=== PATIENT | male | born 1965 | race Caucasian/White ===

== ENCOUNTER 2024-08-26 11:03 | Emergency (ER) | payer OTHER, SELFPAY ==
[2024-08-26 11:11] VITALS: BMI 38.5
[2024-08-26 11:12] VITALS: BP 162/93; PULSE 85; RESP 18; TEMP 36.3; O2SAT 98
--- NOTE | 2024-08-26 11:29 | XR_ITS ---
Examination: CT brain head without contrast. 2-D sagittal coronal reconstructions Date and time of exam:August 26, 2024 1146 hrs. Indications: Weakness headaches several days CTDI: vol (mGy):52.8 DLP: (mGycm):1044 Technique: Multiple CT axial sections of the brain have been obtained, 5 mm slice thickness. Contrast has not been administered. 2-D sagittal, coronal reconstructions have been obtained Low dose protocols were performed. One or more of the following dose reduction techniques were used; automated exposure control, adjustment of the mA and/or KV according to patient size, use of iterative reconstruction technique. Findings: No significant ventricular enlargement. Intra-axial or extra-axial hemorrhage density is not seen. No mass effect or midline shift Basal cisterns are not remarkable. Fourth ventricle is midline. Cranial vault intact. Impression: Negative for acute hemorrhage, mass effect or midline shift Advise clinical correlation and follow-up accordingly
--- NOTE | 2024-08-26 11:30 | XR_ITS ---
Examination: PA lateral chest 2 views Technique: Upright PA lateral chest 2 views Date and time: February 25, 2025 1244 hrs. Indications: Chest pain beginning 2 days ago. Findings: Normal heart size. Lungs are clear. The osseous structures are intact. Impression: No active disease
--- NOTE | 2024-08-26 11:30 | EKG_ITS ---
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
--- NOTE | 2024-08-26 11:30 | PD.EDRME ---
Rapid Medical Screening Exam RME Arrival date/time: 08/26/24 11:03 59-year-old male presents to the emergency department today for complaints of generalized fatigue ongoing for the last week Chief Complaint: Headache Time Seen by Provider: 08/26/24 11:30 Vital signs: Vital Signs Temperature 97.4 F 08/26/24 11:12 Pulse Rate 85 08/26/24 11:12 Respiratory Rate 18 08/26/24 11:12 Blood Pressure 162/93 H 08/26/24 11:12 Pulse Oximetry (%) 98 08/26/24 11:12 Oxygen Delivery Method Room Air 08/26/24 11:12
[2024-08-26 12:15] LABS: Basophils # (Auto) 0.1 Thou/mm3 (0.0-0.2); Basophils % (Auto) 1 % (0-2.5); Eosinophils # (Auto) 0.5 Thou/mm3 (0.0-0.5); Eosinophils % (Auto) 4 % (0-10); Hematocrit 39.3 % (41.0-53.0); Hemoglobin 13.4 g/dL (13.5-16.0); Immature Granulocytes % (Auto) 2 % (0-0); Lymphocytes # (Auto) 3.4 Thou/mm3 (1.0-4.8); Lymphocytes % (Auto) 29 % (10-50); Mean Corpuscular HGB Conc 34.1 g/dl (31.0-37.0); Mean Corpuscular Volume 91 fL (80-100); Monocytes % (Auto) 8 % (0-12); Neutrophils # (Auto) 6.7 Thou/mm3 (1.8-7.7); Neutrophils % (Auto) 57 % (37-80); Nucleated Red Blood Cell % 0 /100 WBC (0); Platelet Count 335 Thou/mm3 (140-440); Red Blood Count 4.32 Miln/mm3 (4.50-5.90); White Blood Count 11.9 Thou/mm3 (3.8-10.6)
[2024-08-26 12:30] LABS: Collection Type, Urine Clean Catch
[2024-08-26 12:43] LABS: Bilirubin,Urine Negative (Negative); Blood,Urine Negative (Negative); Clarity,Urine Clear (Clear/Hazy); Color,Urine Yellow (Lt Yel-Yel); Glucose, Urine Negative (Negative); Hyaline Casts,Urine < 1 /hpf (0-1); Ketones,Urine Negative (Negative); Leukocyte Esterase,Urine Negative (Negative); Nitrite,Urine Negative (Negative); PH,Urine 5.5 (5.0-7.0); Protein,Urine Trace (Neg - Trace); RBC,Urine 1 /hpf (0-3); Specific Gravity,Urine 1.031 (1.001-1.035); Squamous Epithelial Cell,Urine 1 /hpf (0-5); Urobilinogen,Urine Negative mg/dL (0.0-1.0); WBC,Urine 2 /hpf (0-5)
[2024-08-26 12:46] LABS: Alanine Aminotransferase 19 U/L (10-49); Albumin, Serum 4.7 gm/dL (3.5-5.0); Albumin/Globulin Ratio 1.8 (1.2-2.2); Alkaline Phosphatase 60 U/L (46-116); Anion Gap 13 (7-16); BUN/Creatinine Ratio 21 Ratio (12-20); Bilirubin,Total 0.2 mg/dL (0.3-1.2); Blood Urea Nitrogen 38 mg/dL (9-23); Calcium 10.2 mg/dL (8.3-10.6); Calcium (Corrected) 10.2 mg/dL (8.5-10.1); Carbon Dioxide 22.3 mMol/L (20.0-31.0); Chloride 104 mMol/L (98-107); Creatinine (Component) 1.8 mg/dL (0.6-1.3); Estimated Creatinine Clearance 52.2 mL/min (>60); Globulin 2.6 gm/dL (2.3-3.5); Glucose 196 mg/dL (74-106); Osmolality,Calculated 291 (275-295); Potassium 4.5 mMol/L (3.4-5.1); Sodium 139 mMol/L (136-145); Total Protein 7.3 gm/dL (5.7-8.2); Troponin I < 0.020 ng/mL (0.0-0.045); eGFR 43 See Note
[2024-08-26 12:47] LABS: B-Type Natriuretic Peptide < 20 pg/mL (0-100)
[2024-08-26 14:42] VITALS: BP 145/84; PULSE 88; RESP 18; TEMP 36.5; O2SAT 97
--- NOTE | 2024-08-26 15:19 | PD.EDADULT ---
ED General RME/HPI General Chief complaint: Headache Stated complaint: CARDOZA, CLAMMY, LEFT EYE FEELS FUNNY, LEFT EAR PAIN Time Seen by Provider: 08/26/24 11:30 Arrival date/time: 08/26/24 11:03 Limitations: no limitations RME / HPI RME / HPI narrative: 08/26/24 11:03 59-year-old male presents to the emergency department today for complaints of generalized fatigue ongoing for the last week DR. GUERRERO MAIN ED EVALUATION: 59 year old male with past medical history significant for diabetes presents to the Emergency Department accompanied by his with complaint of top left headache onset 1.5 weeks. Headache is intermittent. Associated symptoms include generalized weakness. Denies any neck pain but does state his pain goes a little down his left ear area. No back pain. No fevers or chills. No nausea or vomiting. Related Data Home Medications ?Medication ?Instructions ?Recorded ?Confirmed aspirin 81 mg tablet,delayed 81 mg PO QDAY 01/02/19 01/06/19 release (Aspir-) fexofenadine 180 mg tablet 180 mg PO BID 01/02/19 01/06/19 (Addie Allergy) fluticasone propionate 50 1 spray intranasal QDAY 01/02/19 01/06/19 mcg/actuation nasal spray,suspension (Flonase Allergy Relief) gemfibrozil 600 mg tablet 600 mg PO BID 01/02/19 01/06/19 losartan 50 mg tablet 50 mg PO QDAY 01/02/19 01/06/19 [id number]-gzq-fbifk acid 0.4 1 tab PO QDAY 01/02/19 01/06/19 mg-lycopene 300 mcg-lutein 250 mcg tablet (Centrum Silver) omeprazole 40 mg capsule,delayed 40 mg PO QDAY 01/02/19 01/06/19 release Previous Rx's ?Medication ?Instructions ?Recorded docusate sodium 100 mg capsule 100 mg PO BID #50 caps 01/06/19 (Colace) hydrocodone 7.5 mg-acetaminophen 1 tab PO Q6H PRN pain #25 tabs 01/06/19 325 mg tablet ([place]) ibuprofen 600 mg tablet 600 mg PO Q6H PRN pain (scale 01/06/19 score 4-6) #20 tabs ibuprofen 800 mg tablet 800 mg PO TID PRN pain #30 tabs 02/11/23 methocarbamol 750 mg tablet 750 mg PO Q6H muscle spasm #20 tabs 08/26/24 Allergies Allergy/AdvReac Type Severity Reaction Status Date / Time hydrocodone Allergy Verified 02/11/23 13:16 Review of Systems Review of Systems Systems Reviewed: All systems reviewed, normal except as documented Past Medical History Past Medical History NEUROLOGIC: Positive Transient Ischemic Attacks (TIA) (3 YEARS AGO, HAD WORKUP. WAS NOT CONFIRMED/RULED OUT) and Head Trauma (MULT THROUGHOUT CHILDHOOD/EARLY ADULTHOOD) CARDIAC: Positive Cardiac Disorders, Hypercholesterolemia (On meds) and Hypertension (on meds) GASTROINTESTINAL: Positive Gastrointestinal Disorders, Hemorrhoids (no surgery needed), Gastroesophageal Reflux Disease (takes med) and Obesity MUSCULOSKELETAL: Positive Fractures (ribs, L elbow, broken teeth, cracked his skull (no sx needed)) ENT: Positive Head Trauma (MULT THROUGHOUT CHILDHOOD/EARLY ADULTHOOD) HEMATOLOGIC: Positive Anemia (as a child, took iron x) OTHER HISTORY: Positive Chicken Pox Family History FAMILY HISTORY: Positive Family Respiratory Disorders (MOTHER-ASTHMA,COPD. BROTHER ASTHMA), Family Cardiac Disorders (BROTHER-CARDIAC BYPASS SX, MOTHER-HTN), Family Gastrointestinal Problems (FATHER-POSSIBLE ULCER?), Family Cancer (MOTHER-OVARIAN CA 2019) and Family Surgery (BROTHER, MOTHER, SISTER) Social History SMOKING STATUS: Never smoker SUBSTANCE USE: does not use ALCOHOL: Never ED Exam General Limitations: Present no limitations General appearance: Present alert and in no apparent distress Head Head exam: Present atraumatic, normocephalic and normal inspection Eye Eye exam: Present normal appearance, PERRL and EOMI ENT ENT exam: Present normal exam, normal oropharynx and mucous membranes moist Neck Neck exam: Present tenderness (TMJ tenderness, trigger point on the left trapezius muscle tenderness) Chest Chest inspection: Present normal inspection and symmetric chest wall rise Respiratory Respiratory exam: Present normal lung sounds bilaterally Cardiovascular Cardiovascular exam: Present regular rate, normal rhythm and normal heart sounds Abdominal Exam Abdominal exam: Present soft and normal bowel sounds Extremities Exam Extremities exam: Present normal inspection and full ROM Back Exam Back exam: Present normal inspection and full ROM Neurological Exam Neurological exam: Present alert, oriented X3 and CN II-XII intact Psychiatric Psychiatric exam: Present normal affect and normal mood Skin Skin exam: Present warm, dry, intact and normal color Course Quality Measures none Orders Category Date Time Status EKG (ED ONLY) *Do not use* NOW Care 08/26/24 11:[address] head/brain wo con Stat Exams 08/26/24 11:29 Completed EKG (ED Only) Stat Exams 08/26/24 11:30 Draft XR chest 2V Stat Exams 08/26/24 11:30 Completed B-Type Natriuretic Peptide Stat Lab 08/26/24 11:54 Completed CBC Stat Lab 08/26/24 11:54 Completed Comprehensive Metabolic Panel Stat Lab 08/26/24 11:54 Completed Troponin I Stat Lab 08/26/24 11:54 Completed Urinalysis Stat Lab 08/26/24 12:17 Completed Ketorolac Inj [Toradol Inj] Med 08/26/24 15:27 Discontinued 15 mg IM X1 ONE Vital Signs Vital signs: Vital Signs Temperature 97.4 F 08/26/24 11:12 Pulse Rate 85 08/26/24 11:12 Respiratory Rate 18 08/26/24 11:12 Blood Pressure 162/93 H 08/26/24 11:12 Pulse Oximetry (%) 98 08/26/24 11:12 Oxygen Delivery Method Room Air 08/26/24 11:12 Discharge Plan Plan Patient Disposition: HOME (Self Care) Patient condition on transfer: Stable Prescriptions/Referrals Prescriptions/Med Rec: New methocarbamol 750 mg tablet 750 mg PO Q6H MDD 4 Qty: 20 0RF No Action losartan 50 mg Tablet 50 mg PO QDAY fexofenadine [Addie Allergy] 180 mg Tablet 180 mg PO BID omeprazole 40 mg Capsule,Delayed Release(Dr/Ec) 40 mg PO QDAY aspirin [Aspir-81] 81 mg Tablet,Delayed Release (Dr/Ec) 81 mg PO QDAY gemfibrozil 600 mg Tablet 600 mg PO BID fluticasone propionate [Flonase Allergy Relief] 50 mcg/actuation [place],Suspension 1 spray intranasal QDAY Centrum Silver 0.4-300-250 mg-mcg-mcg Tablet 1 tab PO QDAY docusate sodium [Colace] 100 mg capsule 100 mg PO BID Qty: 50 0RF hydrocodone-acetaminophen [[place]] 7.5-325 mg tablet 1 tab PO Q6H MDD 5 PRN (Reason: pain) Qty: 25 0RF ibuprofen 600 mg tablet 600 mg PO Q6H PRN (Reason: pain (scale score 4-6)) Qty: 20 0RF ibuprofen 800 mg tablet 800 mg PO TID PRN (Reason: pain) Qty: 30 0RF Referrals: Cesar Monge MD [Primary Care Provider] - In 1 week Problem List Clinical Impression: Myofascial pain, TMJ tenderness, left, Hyperglycemia, Dehydration, Headache Patient/Caregiver Discharge Instructions Diet Instructions: drink more fluids Additional Instructions: Drink more fluids. Take Tylenol 500 mg 2 tabs every 6 hours as needed for pain PLUS Advil 200 mg gel 2 tablets. Please talk to your doctor about physical therapy and an ENT referral for TMJ. Please follow-up with your primary care physician within 2 days. Return to the Emergency Department as needed. Print Language: Amharic Stand Alone Forms: [employer] Award Info., Work/School Release, Patient Portal Info Letter MDM Narrative [facility] hospital course: I, Luli Pascual, am scribing for and in the presence of Dr. Guerrero. Head CT is negative. Patient had myolfacial pain and left TMJ tenderness. Patient is hyperglycemic, his blood glucose is 196. Patient is also dehydrated and was advised to drink more fluids. Patient will be discharged with a muscle relaxer and advised to take Tylenol 500 mg 2 tabs every 6 hours as needed for pain PLUS Advil 200 mg gel 2 tablets. Patient was also advised to follow up with her doctor about physical therapy and an ENT referral for TMJ. Clinical Information Provided by patient and spouse Medical Records Reviewed [facility] Meds/Rx Considered, not Ordered None Labs/Rad/Tests considered, not Ordered None Chronic Illness/Social Conditions Add or document further as needed: Diabetes EKG Interpretation EKG #1: Date/time of EK08/26/24 1132 hours EKG interpretation: sinus rhythm, rate 84, no acute changes, VA interval 152 ms, QRS duration 86 ms, QT/QTc 343/407, P-R-T axis 59, 15, 61 Lab Interpretation Labs: see narrative above Imaging Imaging interpretation: see narrative above Radiology reports / interpretation(s): Procedure(s): XR chest 2V Accession Number(s): [id number] cc: Jemma (DANETTE),Christopher SAMANIEGO; Herman Gallardo MD; Cesar Monge MD~ Examination: PA lateral chest 2 views Technique: Upright PA lateral chest 2 views Date and time: February 25, 2025 1244 hrs. Indications: Chest pain beginning 2 days ago. Findings: Normal heart size. Lungs are clear. The osseous structures are intact. Impression: No active disease Dictated By: Herman Gallardo MD Procedure(s): CT head/brain wo con Accession Number(s): [id number] cc: Jemma (DANETTE),Christopher SAMANIEGO; Herman Gallardo MD; Cesar Monge MD~ Examination: CT brain head without contrast. 2-D sagittal coronal reconstructions Date and time of exam:August 26, 2024 1146 hrs. Indications: Weakness headaches several days CTDI: vol (mGy):52.8 DLP: (mGycm):1044 Technique: Multiple CT axial sections of the brain have been obtained, 5 mm slice thickness. Contrast has not been administered. 2-D sagittal, coronal reconstructions have been obtained Low dose protocols were performed. One or more of the following dose reduction techniques were used; automated exposure control, adjustment of the mA and/or KV according to patient size, use of iterative reconstruction technique. Findings: No significant ventricular enlargement. Intra-axial or extra-axial hemorrhage density is not seen. No mass effect or midline shift Basal cisterns are not remarkable. Fourth ventricle is midline. Cranial vault intact. Impression: Negative for acute hemorrhage, mass effect or midline shift Advise clinical correlation and follow-up accordingly Dictated By: Herman Gallardo MD Medication Administration(s) none Medication Administration History Discontinued Medications Ketorolac Tromethamine (Ketorolac Inj 60 Mg/2 Ml Vial) 15 mg IM X1 ONE Stop: 08/26/24 15:28 Diagnosis Differential diagnosis: Headache, migraine, myolfacial pain, left TMJ tenderness Most likely dx, and/or detailed dx discussion: Myolfacial pain Left TMJ tenderness Hyperglycemia Headache Dispositon Disposition: Discharge Home
[2024-08-26] MEDS: KETOROLAC INJ 60 MG/2 ML VIAL 15 MG IM (15:53)
== END 2024-08-26 15:58 | disposition home or self-care (01) ==
PROVIDERS: Nurse Practitioner Primary Care; Emergency Provider Family Medicine; PCP Family Medicine
DX: E86.0 Dehydration (principal); E11.65 Type 2 diabetes mellitus with hyperglycemia; M26.602 Left temporomandibular joint disorder, unspecified; R07.9 Chest pain, unspecified; E78.00 Pure hypercholesterolemia, unspecified; I10 Essential (primary) hypertension; H92.02 Otalgia, left ear
CPT/HCPCS: 36415; 70450; 71046; 80053; 81001; 83880; 84484; 85025; 93005; 96372; 99284; J1885

== ENCOUNTER → 2024-08-28 | Outpatient (CLI) | payer OTHER, SELFPAY ==
--- NOTE | 2024-08-28 | XR_ITS ---
Examination: Retroperitoneal ultrasound, complete Technique: Multiple high resolution grayscale images of the retroperitoneum obtained, including kidneys and bladder. Exam date and time:August 28, 2024 1141 hours INDICATIONS: Diagnosis chronic kidney disease stage II FINDINGS: Right kidney 12.8 cm cortex 2.6 cm Left kidney 11.2 cm renal cortex 2.8 cm Mild to moderate bilateral renal parenchymal scar formation No hydronephrosis No bladder mass or bladder calculi Bladder prevoid volume 107 cc postvoid volume 9 cc, negative for prostatomegaly IMPRESSION: Mild to moderate bilateral renal parenchymal scar formation
[2024-08-28 12:40] LABS: Alanine Aminotransferase 21 U/L (10-49); Albumin, Serum 4.8 gm/dL (3.5-5.0); Albumin/Globulin Ratio 1.9 (1.2-2.2); Alkaline Phosphatase 58 U/L (46-116); Anion Gap 13 (7-16); BUN/Creatinine Ratio 21 Ratio (12-20); Bilirubin,Total 0.2 mg/dL (0.3-1.2); Blood Urea Nitrogen 29 mg/dL (9-23); Calcium 10.1 mg/dL (8.3-10.6); Calcium (Corrected) 10.1 mg/dL (8.5-10.1); Chloride 104 mMol/L (98-107); Creatinine (Component) 1.4 mg/dL (0.6-1.3); Globulin 2.5 gm/dL (2.3-3.5); Glucose 142 mg/dL (74-106); Osmolality,Calculated 287 (275-295); Potassium 4.7 mMol/L (3.4-5.1); Sodium 140 mMol/L (136-145); T4 (Thyroxine) 5.6 mcg/dL (4.5-10.9); Thyroid Stimulating Hormone 5.06 uIU/mL (0.55-4.78); Total Protein 7.3 gm/dL (5.7-8.2); eGFR 59 See Note
[2024-08-28 13:36] LABS: Glucose Estimated Average 157 mg/dL (80-131); Hemoglobin A1C 7.1 % Hgb (4.8-6.0)
== END | disposition home or self-care (01) ==
LOC: CDIM 11:27 → COPL 11:53
PROVIDERS: PCP Family Medicine; Referring Provider Family Medicine; Visit Provider Family Medicine
DX: N28.89 Other specified disorders of kidney and ureter (principal); E11.22 Type 2 diabetes mellitus with diabetic chronic kidney disease; N18.2 Chronic kidney disease, stage 2 (mild); E11.65 Type 2 diabetes mellitus with hyperglycemia; R53.82 Chronic fatigue, unspecified
CPT/HCPCS: 36415; 76770; 80053; 83036; 84436; 84443